=== PATIENT | female | born 1985 | race Hispanic/Latino ===

== ENCOUNTER 2023-03-27 07:19 | Emergency (ER) | payer SELFPAY ==
--- OUTSIDE RECORDS SUMMARY | 2023-03-27 07:22 | XMS REPORT | Continuity of Care Document ---
:1985 Author Organization [facility] t Address [address] [place] [address] Care Team Providers Name Role Phone Asked, No Pcp Primary Care Physician Unavailable Donny Andrade Attending Clinician DONNY ANDRADE Attending Clinician Unavailable MELANIE GHOTRA Attending Clinician Unavailable JACE CÁRDENAS Attending Clinician Unavailable ASHLEY NAPIER Attending Clinician Unavailable Fred Amaya Attending Clinician FRED AKBAR Attending Clinician Unavailable MELANIE GHOTRA Admitting Clinician Unavailable Payers Payer Name Policy Type Policy Number Effective Date Expiration Date S ource Problems Condition Condition Condition Status Onset Resolution Last Treating Co mments Source Name Details Category Date Date Treatment Clinician Date COUGH/ COUGH/ Diagnosis Active 2020-102021-11-29 Me moria FEVER FEVER 12-21 09:55:00 l Active 00:00: Saulo 10/20/2021 00 [facility] Menorrhagi Menorrhagi Disease Active M ethodi a with a with 06-29 regular regular 00:00: Hospita cycle cycle 00 l Chlamydia Chlamydia Disease Active Uni vers trachomati trachomati 5-19 it y of s s 00:00: [place] infection infection 00 Medi jacobo of lower of lower Branch genitourin genitourin nazia sites nazia sites Screening Screening Disease Active Uni vers for STD for STD 12 ity of (sexually (sexually 00:[place] transmit[place] transmitte 00 Me dical d disease) d disease) Br anch Surveillan Surveillan Disease Active Overview : Univers ce of ce of 3-16 ICD10 ity of previously previously 00:00: Diagnosis [place] prescribed prescribed 00 Term Me dical contracept contracept Pace Analyst Branch jesse method jesse method Utility Depo-Prove Depo-Prove Disease Active U nivers ra ra 3-16 ity of contracept [place]pt [place] j[place] status jesse status 00 Me dical Branch Anemia Anemia Disease Active Overview: Univer s 3-16 ICD10 ity of 00:00: Diagnosis [place] 00 Term Medical Pace Analyst Branch Utility Obesity Obesity Disease Active Overview: Univ ers -12 ICD10 ity of 00:00: Diagnosis [place] 00 Term Medical Pace Analyst Branch Utility History of Past Illness Condition Condition Condition Status Onset Resolution Last Treating Co mments Source Name Details Category Date Date Treatment Clinician Date 2018-nCoV 2019-nCoV Problem 2020-102021-10-24 2021-10-24 Memoria acute acute 24 10:20:53 10:20:53 l respirator respirator 18:00: He rmann y disease y disease 00 10/21/2021 [facility] Allergies, Adverse Reactions, Alerts Allergy Allergy Status Severity Reaction(s) Onset Inactive Treating Comm ents Source Name Type Date Date Clinician Hydrocod Propensi Active Hives Method i one-Acet ty to 4-17 st aminophe adverse 00:00: Hospita n reaction 00 l s to drug Penicill DA Active MO 2017-10 [facility] ins 0-30 Clear 00:00: [place] 00 [facility] hydrocod DA Active MO 2017-10 [facility] one 0-30 Clear 00:00: [place] 00 [facility] Penicill Propensi Active Hiv Univer s ins ty to 8-25 ity of adverse 00:00: [place] reaction 00 Medical s Branch PENICILL Drug Active Hives Univers INS Class 8-25 ity of 00:00: [place] 00 Medical Branch Hydrocod Propensi Active Hives Univer s one ty to 711 ity of adverse 00:00: [place] reaction 00 Medical s Branch HYDROCOD DRUG Active Hives Univers ONE INGREDI 7 ity of 00:00: [place] 00 Medical Branch amoxicil amoxicil Active Memori a chuy chuy l [place] acetamin acetamin Active Memori a ophen-hy ophen-hy l drocodon drocodon [place] n e e Family History Family Member Diagnosis Comments Start Date Stop Date Source Maternal grandmother Diabetes [facility] Maternal grandmother Heart disease [facility] Natural mother Bipolar disorder [facility] Natural mother Diabetes [facility] Natural mother Schizophrenia [facility] Social History Social Habit Start Date Stop Date Quantity Comments Source Gender identity [facility] Sexual orientation [facility] Social History 2021-10-21 2021-10-21 [facility] 04:47:29 04:47:29 Alcohol intake 2021-06-29 2021-06-29 [facility] 00:00:00 00:00:00 non-drinker Hospital (finding) History of Social 2021-06-29 2021-06-29 [facility] function 00:00:00 00:00:00 Hospital Tobacco use and 2021-02-12 2021-02-12 Smokeless [facility] exposure 00:00:00 00:00:00 tobacco non-user Hospital Tobacco Comment 2015-04-19 2015-04-19 social smoker Univer sity of 00:00:00 00:00:00 only [facility] Alcohol Comment 2013-05-08 2013-05-08 socially only Univer sity of 00:00:00 00:00:00 [facility] Sex Assigned At [birth year] [facility] 00:00:00 00:00:00 Hospital Smoking Status Start Date Stop Date Source Never smoker [facility] Medications Ordered Filled Start Stop Current Ordering Indication Dosage Frequency Signature Comments Components Source Medication Medication Date Date Medication? Clinician (SIG) Name Name MULTIVITAMI Yes Take by Uni vers N ORAL 1-31 mouth. ity of 16:51: [place] [facility] norgestimat Yes 1{tbl} Take 1 Un sowmya e-ethinyl 1-31 tablet by ity o f estradiol 00:00: mouth [place] (SPRINTEC) 00 daily. Medical 0.25-35 Branch mg-mcg per tablet norgestimat Yes [id number] 1{tbl} Take 1 Tab Univers e-ethinyl 4-18 by mouth ity of estradiol 00:00: daily. [place] (ORTHO 00 Medical TRI-CYCLEN, Branch 28,) 0.18/0.215/ 0.25 mg-35 mcg (28) tablet ferrous 2013- Yes [id number] 325mg Take 1 Tab Univers sulfate 1-09 by mouth 3 ity of (IRON, 00:00: (three) [place] FERROUS 00 times Medical SULFATE,) daily with Bran ch 325 mg (65 meals. mg iron) tablet Immunizations Ordered Filled Immunization Date Status Comments Sour e Immunization Name Name Td [facility]00 [facility] Vital Signs Vital Name Observation Time Observation Value Comments Source Body weight 2020-01-11 15:44:00 90.719 kg [facility] BMI 2020-01-11 15:44:00 35.43 kg/m2 [facility] Systolic blood 2020-01-11 15:43:00 141 [facility]Hg[facility] Diastolic blood 2020-01-11 15:43:00 95 mm[Hg] [facility] Heart rate 2020-01-11 15:43:00 78 /min [facility] Body temperature 2020-01-11 15:43:00 36.72 [facility] 2020-01-11 15:43:00 18 /min [facility] Oxygen saturation in 2020-01-11 15:43:00 99 /min [facility] Arterial blood by [facility] Pulse oximetry Branch Respitory Rate 2021-10-21 05:45:00 Florence[place] al [place] Systolic (mm Hg) 2021-10-21 05:45:00 Qamar lexi [facility] Diastolic (mm Hg) 2021-10-21 05:45:00 Mem orial [place] Temperature Oral (F) 2021-10-21 05:45:00 98.6 F [facility] [place] Heart Rate 2021-10-21 05:45:00 [facility] [place] Height 2021-10-21 04:40:00 157.48 cm [facility] [place] BMI Calculated 2021-10-21 04:40:00 Memori al [place] Weight 2021-10-21 04:40:00 [facility] [place] Systolic (mm Hg) 2021-10-21 04:40:00 Qamar rial [place] Diastolic (mm Hg) 2021-10-21 04:40:00 Mem orial [place] Heart Rate 2021-10-21 04:40:00 [facility] [place] Respitory Rate 2021-10-21 04:40:00 Memori al [place] Temperature Oral (F) 2021-10-21 04:40:00 98.6 F [facility] [place] Procedures Procedure Date / Time Performed Performing Clinician Sour e GALV ONLY - INFLUENZA 2020-01-11 15:53:00 Fred Akbar [facility] A B RSV PCR Medical Branch Plan of Care Planned Activity Planned Date Details Comments Source Future Scheduled 2023-01-29 [facility]ACCINE [facility] Test 11:33:24 (#1) [code = COVID-19 VACCINE (#1)] Future Scheduled 2023-01-29 [facility] Test 11:33:24 screening (procedure) [code = 163915732] Future Scheduled 2023-01-29 Screening for [facility] Test 11:33:24 malignant neoplasm of cervix (procedure) [code = 167395303] Future Scheduled 2023-01-29 INFLUENZA VACCINE [facility] Test 11:33:24 [code = INFLUENZA VACCINE] Encounters Start End Encounter Admission Attending Care Care Encounter Source Date/Time Date/Time Type Type Clinicians Facility Department ID 2021-10-21 2021-10-21 Emergency nullFlavo [facility] [id number] Memoria 04:34:00 06:46:00 [facility] 00 l ([facility]) Saulo 2021-10-20 2021-10-[address] [facility] [id number] 22:34:00 00:46:00 Sumit 00 2021-10-20 2021-10-[address] [facility] [id number] 22:34:00 00:46:00 Sumit 00 2021-10-20 2021-10-21 Emergency E DONNY ANDRADE [facility] [id number] 22:34:00 00:46:00 [facility] 2021-06-29 2021-06-30 Inpatient [facility], [facility] [id number] [place] 00:00:00 00:00:00 MELANIE 527 Method i 2021-06-15 2021-06-15 Emergency AVI, [place] [id number] [place] 00:00:00 00:00:00 JACE 214 Method i 2021-02-12 2021-02-12 Emergency KARTHIKEYAN, [place] [address] [id number] [place] 00:00:00 00:00:00 ASHLEY 487 Method i 2020-01-11 2020-01-11 Emergency Naomie, [place] [id number] Univers 10:44:53 12:13:00 [facility] [id number] i ty of Rad [id number] [facility] [id number] [address] 2020-01-11 2020-01-11 Emergency X NAOMIE, [facility] ERT [id number] Univers 10:44:53 10:44:53 FRED ity o f [facility] Results Test Description Test Time Test Comments Results Result Comments Source [facility] 2021-10-21 05:36:00 Test Item Value Reference Range Interpretation Comme nts Coronavirus (COVID-19) STEVEN (test code = Detected 1*ABN*(10/20/21 11 :36 PM) Coronavirus (COVID-19) STEVEN) [facility] - INFLUENZA A B RSV [id number] 16:57:00 Test Item Value Reference Range Interpretation Comments Influenza A virus by PCR (test code Negative Negative = 81498-7) Influenza B virus by PCR (test code Negative Negative = 60377-3) RSV by PCR (test code = 96787-7) Negative Negative Lab Interpretation (test code = Normal 42377-2) [facility]
--- NOTE | 2023-03-27 08:23 | RAD REPORT ---
EXAM DESCRIPTION: MONICA - HAND - 03/27/2023 7:59 am CLINICAL HISTORY: 5th digit injury;Pain COMPARISON: <Comparisons> TECHNIQUE: Left hand, 3 views. FINDINGS: No fracture is identified. There is no dislocation or periosteal reaction noted. Joint alignment is maintained. No foreign body. Soft tissue swelling about the fifth digit. IMPRESSION: Soft tissue swelling without acute osseous abnormality of the fifth digit
--- NOTE | 2023-03-27 08:38 | ER ---
Nurse's Notes [facility] Name: Latonya Sam Age: 37 yrs Sex: Female : 1985 Arrival Date: 03/27/2023 Time: 07:19 Bed 15 Private MD: Diagnosis: Other sprain of left little finger Presentation: 03/27 07:29 Chief complaint: Patient states: PT HAND WAS INJURED DUE TO DOG LEASH WRAPPED AROUND ld1 IT. Coronavirus screen: Client denies travel out of the [place] in the last 14 days. At this time, the client does not indicate any symptoms associated with coronavirus-19. Ebola Screen: No symptoms or risks identified at this time. Initial Sepsis Screen: Does the patient meet any 2 criteria? No. Patient's initial sepsis screen is negative. Risk Assessment: Do you want to hurt yourself or someone else? Patient reports no desire to harm self or others. 07:29 Method Of Arrival: Ambulatory ld1 07:29 Acuity: CLARK 4 ld1 08:51 Initial Sepsis Screen: Does the patient meet any 2 criteria? No. Patient's initial ld1 sepsis screen is negative. Does the patient have a suspected source of infection? No. Patient's initial sepsis screen is negative. Onset of symptoms was March 27, 2023. Triage Assessment: 07:32 General: Appears in no apparent distress. Pain: Complains of pain in palmar aspect of ld1 distal phalanx of left little finger, palmar aspect of middle phalanx of left little finger and palmar aspect of proximal phalanx of left little finger. 08:50 General: Behavior is calm, cooperative, appropriate for age. ld1 08:51 Injury Description: sprain. 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 - Family history:: not pertinent. - Social history:: Smoking status: Patient denies any tobacco usage or history of. Patient/guardian denies using alcohol. - Hospitalizations: : No recent hospitalization is reported. Screenin:17 [facility] ED Fall Risk Assessment (Adult) History of falling in the last 3 months, ld1 including since admission No falls in past 3 months (0 pts). Abuse screen: Denies threats or abuse. Denies injuries from another. Nutritional screening: No deficits noted. Tuberculosis screening: No symptoms or risk factors identified. Assessment: 08:17 Reassessment: No changes from previously documented assessment. Patient and/or family ld1 updated on plan of care and expected duration. Pain level reassessed. See triage assessment. Vital Signs: 07:29 BP 165 / 94; Pulse 76; Resp 18; Temp 98.2; Pulse Ox 99% on R/A; Weight 108.86 kg; ld1 Height 5 ft. 3 in. ; Pain 7/10; 07:32 BP 165 / 94; Pulse 76; Resp 16; Temp 98.2; Pulse Ox 99% on R/A; Weight 108.86 kg; ld1 Height 5 ft. 3 in. ; Pain 7/10; 08:17 BP 153 / 93; Pulse 79; Resp 18; Pulse Ox 100% on R/A; ld1 07:32 Body Mass Index 42.51 (108.86 kg, 160.02 cm) ld1 07:29 Pain Scale: Adult ld1 07:32 Pain Scale: Adult ld1 ED Course: 07:21 Patient arrived in ED. mr 07:24 Del Ley MD is Attending Physician. rn 07:29 Soila Chow, JOSE is Primary Nurse. ld1 07:31 Triage completed. ld1 08:01 XRAY Hand LEFT 3 View In Process Unspecified. EDMS 08:17 Patient has correct armband on for positive identification. Placed in gown. Bed in low ld1 position. Call light in reach. Side rails up X2. Pulse ox on. NIBP on. Door closed. Noise minimized. Warm blanket given. 08:17 No provider procedures requiring assistance completed. ld1 08:50 Arm band placed on right wrist. ld1 08:51 Patient did not have IV access during this emergency room visit. ld1 Administered Medications: No medications were administered Medication: 08:17 VIS not applicable for this client. ld1 Outcome: 08:37 Discharge ordered by . rn 08:50 Discharged to home ambulatory. ld1 08:50 Condition: stable 08:50 Discharge instructions given to patient, Instructed on discharge instructions, follow up and referral plans. Demonstrated understanding of instructions, follow-up care. 08:51 Patient left the ED. ld1 Signatures: Dispatcher [employer] Kaity Multani mr LeyDel MD MD rn ChowSoila RN RN ld1
--- NOTE | 2023-03-27 08:38 | EDPHYS ---
Physician Documentation [facility] Name: Latonya Sam Age: 37 yrs Sex: Female : 1985 Arrival Date: 03/27/2023 Time: 07:19 Bed 15 Private MD: ED Physician Del Ley HPI: 03/27 07:29 This 37 yrs old Female presents to ER via Unassigned with complaints of Finger rn Injury. 07:29 Mechanism of injury: Pull injury. Associated injuries: The patient sustained left 5th rn finger. Onset: The symptoms/episode began/occurred 5 day(s) ago. The patient has not experienced similar symptoms in the past. The patient has not recently seen a physician. Pt reports dog leash wrapped around her finger, dog pulled, heard a pop, swollen and bruised, happened 5 days ago. 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 - Family history:: not pertinent. - Social history:: Smoking status: Patient denies any tobacco usage or history of. Patient/guardian denies using alcohol. - Hospitalizations: : No recent hospitalization is reported. ROS: 07:29 Constitutional: Negative for fever, chills, and weight loss, MS/Extremity: + injury and rn pain to left 5th digit Skin: + bruising to left 5th finger Exam: 07:29 Constitutional: This is a well developed, well nourished patient who is awake, alert, rn and in no acute distress. MS/ Extremity: Pulses equal, no cyanosis. Neurovascular intact. + tenderness and swelling to proximal left 5th digit without open wound, + mild ecchymosis, some pain when making a fist, no scissoring noted. Vital Signs: 07:29 BP 165 / 94; Pulse 76; Resp 18; Temp 98.2; Pulse Ox 99% on R/A; Weight 108.86 kg; ld1 Height 5 ft. 3 in. ; Pain 7/10; 07:32 BP 165 / 94; Pulse 76; Resp 16; Temp 98.2; Pulse Ox 99% on R/A; Weight 108.86 kg; ld1 Height 5 ft. 3 in. ; Pain 7/10; 08:17 BP 153 / 93; Pulse 79; Resp 18; Pulse Ox 100% on R/A; ld1 07:32 Body Mass Index 42.51 (108.86 kg, 160.02 cm) ld1 07:29 Pain Scale: Adult ld1 07:32 Pain Scale: Adult ld1 MDM: 07:24 Patient medically screened. rn 08:35 Differential diagnosis: finger fracture. Data reviewed: vital signs, nurses notes, rn radiologic studies, plain films, and as a result, I will discharge patient. Independent interpretation of the following test(s) in the Emergency Department X-Ray: My interpretation is Xray left hand images neg for finger fracture per my interpretation. Counseling: I had a detailed discussion with the patient and/or guardian regarding: the historical points, exam findings, and any diagnostic results supporting the discharge/admit diagnosis, radiology results, the need for outpatient follow up, to return to the emergency department if symptoms worsen or persist or if there are any questions or concerns that arise at home. Special discussion: I discussed with the patient/guardian in detail that at this point there is no indication for admission to the hospital. It is understood, however, that if the symptoms persist or worsen the patient needs to return immediately for re-evaluation. 03/27 07:29 Order name: XRAY Hand LEFT 3 View; Complete Time: 08:35 rn 03/27 08:40 Order name: Splint - Finger; Complete Time: 08:50 rn Administered Medications: No medications were administered Disposition Summary: 03/27/23 08:37 Discharge Ordered Location: Home rn Problem: new rn Symptoms: have improved rn Condition: Stable rn Diagnosis - Other sprain of left little finger rn Followup: rn - With: Private Physician - When: As needed - Reason: Recheck today's complaints, Re-evaluation by your physician Discharge Instructions: - Discharge Summary Sheet rn - Finger Sprain, Adult rn Forms: - Medication Reconciliation Form rn - Thank You Letter rn - 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
[2023-03-27 08:59] VITALS: TEMP 98.2
[2023-03-27 09:02] VITALS: BP 153/93; O2SAT 100
== END 2023-03-27 08:51 | disposition home or self-care (01) ==
LOC: ER 07:19
DX: S63.697A Other sprain of left little finger, initial encounter (principal)
CPT/HCPCS: 99283

== ENCOUNTER 2023-04-09 13:53 | Emergency (ER) | payer SELFPAY ==
--- OUTSIDE RECORDS SUMMARY | 2023-04-09 13:57 | XMS REPORT | Continuity of Care Document ---
:1985 Author Organization [facility] t Address [address] [facility] [address] [place] [address] Care Team Providers Name Role Phone Asked, [...] FEVER FEVER 12-21 09:55:00 l Active 00:00: [place] 10/20/2021 00 MH [facility] Menorrhagi Menorrhagi Disease Active M ethodi a [...] prescribed 00 Term Me dical contracept contracept Client Renewal Specialist Branch jesse method jesse method Utility Depo-Prove Depo-Prove Disease Active U nivers ra ra 3-16 ity of [place] jesse status 00 Me dical Branch Anemia Anemia Disease Active Overview: Univer s 3-16 ICD10 ity of 00:00: Diagnosis [place] 00 Term Medical Client Renewal Specialist Branch Utility Obesity Obesity Disease Active Overview: Univ ers 12 ICD10 ity of 00:00: Diagnosis [place] 00 Term Medical Client Renewal Specialist Branch Utility History of Past Illness Condition Condition Condition Status Onset Resolution Last Treating Co mments Source Name Details Category Date Date Treatment Clinician Date 2018-nCoV 2019-nCoV Problem 2020-102021-10-24 2021-10-24 Memoria acute acute 24 10:20:53 10:20:53 l respirator respirator 18:00: He rmann y disease y disease 00 10/21/2021 [facility] Allergies, Adverse Reactions, Alerts Allergy Allergy Status Severity Reaction(s) Onset Inactive Treating Comm ents Source Name Type Date Date Clinician Hydrocod Propensi Active Hives Method i one-Acet ty to 4-17 st aminophe adverse 00:00: Hospita n reaction 00 l s to drug Penicill DA Active MO 2017-10 [facility] ins 0-30 Clear 00:00: Trejo 00 [facility] hydrocod DA Active MO 2017-10 [facility] one 0-30 Clear 00:00: [place] 00 [facility] Penicill Propensi Active Hives Univer s ins ty to 8-25 ity of adverse 00:00: [place] reaction 00 Medical s Branch PENICILL Drug Active Hives Univers INS Class 8-25 ity of 00:00: [place] 00 Medical Branch Hydrocod Propensi Active Hives Univer s one ty to 7-11 ity of adverse 00:00: [place] reaction 00 Medical s Branch HYDROCOD DRUG Active Hives Univers ONE INGREDI 7 ity of 00:00: [place] 00 Medical Branch amoxicil amoxicil Active Memori a chuy chuy l [place] acetamin acetamin Active Memori a ophen-hy ophen-hy l drocodon drocodon Carlin n e e Family History Family Member Diagnosis Comments Start Date Stop Date Source Maternal grandmother Diabetes [facility] Maternal grandmother Heart disease [facility] Natural mother Bipolar disorder [facility] Natural mother Diabetes [facility] Natural mother Schizophrenia [facility] Social History Social Habit Start Date Stop Date Quantity Comments Source Gender identity [facility] Sexual orientation [facility] Social History 2021-10-21 2021-10-21 [facility] 04:47:29 04:47:29 Alcohol intake 2021-06-29 2021-06-29 Lifetime [facility]ational 00:00:00 00:00:00 non-drinker Hospital (finding) History of Social 2021-06-29 2021-06-[address] [facility] [address] function 00:00:00 00:00:00 Hospital Tobacco use and 2021-02-12 2021-02-12 Smokeless Denominational exposure 00:00:00 00:00:00 tobacco non-user Hospital Tobacco Comment 2015-04-19 2015-04-19 social smoker Univer sity of 00:00:00 00:00:00 only [facility] Alcohol Comment 2013-05-08 2013-05-08 socially only Univer sity of 00:00:00 00:00:00 [facility] Sex Ass[birth year] At [birth year] [facility] 00:00:00 00:00:00 Hospital Smoking Status Start Date Stop Date Source Never smoker [facility] Medications Ordered Filled Start Stop Current Ordering Indication Dosage Frequency Signature Comments Components Source Medication Medication Date Date Medication? Clinician (SIG) Name Name MULTIVITAMI Yes Take by Uni vers N ORAL 1-31 mouth. ity of 16:51: [place] 21 [facility] norgestimat Yes 1{tbl} Take 1 Un sowmya e-ethinyl 1-31 tablet by ity o f estradiol 00:00: mouth [place] (SPRINTEC) 00 daily. Medical 0.25-35 Branch mg-mcg per tablet norgestimat Yes [id number] 1{tbl} Take 1 Tab Univers e-ethinyl 4-18 by mouth ity of estradiol 00:00: daily. [place] (ORTHO 00 Medical TRI-CYCLEN, Branch 28,) 0.18/0.215/ 0.25 mg-35 mcg (28) tablet ferrous 2013- Yes [id number] 325mg Take 1 Tab Univers sulfate 1-09 by mouth 3 ity of (IRON, 00:00: (three) [place] FERROUS 00 times Medical SULFATE,) daily with Bran ch 325 mg (65 meals. mg iron) tablet Immunizations Ordered Filled Immunization Date Status Comments Sour e Immunization Name Name Td 2007 Completed [facility] 00:00:00 [facility] Vital Signs Vital Name Observation Time Observation Value Comments Source Body weight 2020-01-11 15:44:00 90.719 kg [facility] BMI 2020-01-11 15:44:00 35.43 kg/m2 [facility] Systolic blood 2020-01-11 15:43:00 141 mm[facility]Hg[facility] Diastolic blood 2020-01-11 15:43:00 95 mm[Hg] [facility] Heart rate 2020-01-11 15:43:00 78 /min [facility] Body temperature 2020-01-11 15:43:00 36.72 Samia [facility] Respiratory rate 2020-01-11 15:43:00 18 /min [facility] Oxygen saturation in 2020-01-11 15:43:00 99 /min [facility] Arterial blood by [facility] Pulse oximetry Branch Heart Rate 2021-10-21 05:45:00 [facility] [place] Respitory Rate 2021-10-21 05:45:00 Danyell al [place] Systolic (mm Hg) 2021-10-21 05:45:00 Qamar rialibrado [place] Diastolic (mm Hg) 2021-10-21 05:45:00 Mem orial [place] Temperature Oral (F) 2021-10-21 05:45:00 98.6 F [facility] [place] Height 2021-10-21 04:40:00 157.48 cm [facility] [place] BMI Calculated 2021-10-21 04:40:00 Memori al [place] Weight 2021-10-21 04:40:00 [facility] [place] Systolic (mm Hg) 2021-10-21 04:40:00 Qamar rial [place] Diastolic (mm Hg) 2021-10-21 04:40:00 Mem orial [place] Heart Rate 2021-10-21 04:40:00 [facility] [place] Respitory Rate 2021-10-21 04:40:00 Memori al [place] Temperature Oral (F) 2021-10-21 04:40:00 98.6 F [facility] [place] Procedures Procedure Date / Time Performed Performing Clinician Sourida gorman GALV ONLY - INFLUENZA 2020-01-11 15:53:[address] [facility] A B RSV PCR Medical Branch Plan of Care Planned Activity Planned Date Details Comments Source Future Scheduled 2023-01-29 COVID-[address] [facility] Test 11:33:24 (#1) [code = COVID-19 VACCINE (#1)] Future Scheduled 2023-01-29 [facility] Test 11:33:24 screening (procedure) [code = 736041326] Future Scheduled 2023-01-29 [facility] for [facility] Test 11:33:24 malignant neoplasm of cervix (procedure) [code = 660742189] Future Scheduled 2023-01-29 INFLUENZA VACCINE [facility] Test 11:33:24 [code = INFLUENZA VACCINE] Future Scheduled 2023-01-29 COVID-[address] [facility] Test 11:33:24 (#1) [code = COVID-19 VACCINE (#1)] Future Scheduled 2023-01-29 [facility] Test 11:33:24 screening (procedure) [code = 248864356] Future Scheduled 2023-01-29 [facility] Test 11:33:24 malignant neoplasm of cervix (procedure) [code = 521070283] Future Scheduled 2023-01-29 INFLUENZA VACCINE [facility] Test 11:33:24 [code = INFLUENZA VACCINE] Encounters Start End Encounter Admission Attending Care Care Encounter Source Date/Time Date/Time Type Type Clinicians Facility Department ID 2021-10-21 2021-10-21 Emergency nullFlavo [facility] [id number] Memoria 04:34:00 06:46[facility] [place] 2021-10-21 2021-10-21 Emergency nullFlavo [facility] [id number] Mem[facility] 04:34:00 06:46:00 [facility] [place] 2021-10-20 2021-10-21 Outpatient Donny Andrade [facility] [id number] 22:34:00 00:46:00 Sumit 2021-10-20 2021-10-21 Outpatient Donny Andrade MHSE [facility] [id number] 22:34:00 00:46:00 Sumit 2021-10-20 2021-10-21 Emergency E DONNY ANDRADE [facility] MED [id number] 22:34:00 00:46:00 [facility] 2021-06-29 2021-06-30 Inpatient PARADISE, [facility] [id number] 34 [place] 00:00:00 00:00:00 MELANIE 527 Method i 2021-06-15 2021-06-15 Emergency AVI, [facility] [id number] [place] 00:00:00 00:00:00 JACE 214 Method i 2021-02-12 2021-02-12 Emergency KARTHIKEYAN, [facility] [id number] [place] 00:00:00 00:00:00 ASHLEY 487 Method i 2020-01-11 2020-01-11 Emergency Naomie, TRAUMA [id number] Univers 10:44:53 12:13:00 [facility] [id number] [id number] [address] 2020-01-11 2020-01-11 Emergency X NAOMIE NHLAINE ERT [id number] Univers 10:44:53 10:44:53 FRED malave o f [facility] Results Test Description Test Time Test Comments Results Result Comments Source IMMUNOLOGY 2021-10-21 05:36:00 Test Item Value Reference Range Interpretation Comme nts Coronavirus (COVID-19) STEVEN (test code = Detected 1*ABN*(10/20/21 11 :36 PM) Coronavirus (COVID-19) STEVEN) [id number] 05:36:00 Test Item Value Reference Range Interpretation Comments Coronavirus (COVID-19) Detected STEVEN (test code = 1*ABN*(10/20/21 11:36 Coronavirus (COVID-19) PM) STEVEN) [facility] - INFLUENZA A B RSV [id number] 16:57:00 Test Item Value Reference Range Interpretation Comments Influenza A virus by PCR (test code Negative Negative = 96225-2) Influenza B virus by PCR (test code Negative Negative = 54770-3) RSV by PCR (test code = 81247-4) Negative Negative Lab Interpretation (test code = Normal 68295-8) [facility]
--- NOTE | 2023-04-09 16:28 | RAD REPORT ---
EXAM DESCRIPTION: Sonia Single View04/09/2023 3:49 pm CLINICAL HISTORY: Congestion COMPARISON: none FINDINGS: The lungs appear clear of acute infiltrate. The heart is normal size IMPRESSION: No acute abnormalities displayed
--- NOTE | 2023-04-09 16:46 | ER ---
Nurse's Notes [facility] [place] Name: Latonya Sam Age: 37 yrs Sex: Female : 1985 Arrival Date: 04/09/2023 Time: 13:53 Bed 24 Private MD: Diagnosis: Other viral infections of unspecified site;Acute upper respiratory infection, unspecified Presentation: 04/09 14:11 Chief complaint: Patient states: Cough, congestion, N/V since Sunday. Coronavirus jl7 screen: congestion, cough unrelated to allergies, Client presents with at least one sign or symptom that may indicate coronavirus-19. Ebola Screen: No symptoms or risks identified at this time. Initial Sepsis Screen: Does the patient meet any 2 criteria? No. Patient's initial sepsis screen is negative. Does the patient have a suspected source of infection? No. Patient's initial sepsis screen is negative. Risk Assessment: Do you want to hurt yourself or someone else? Patient reports no desire to harm self or others. Onset of symptoms was April 07, 2023. 14:11 Method Of Arrival: Ambulatory [facility] 14:11 Acuity: CLARK 3 jl7 Triage Assessment: 14:12 General: Appears in no apparent distress. uncomfortable, Behavior is calm, cooperative, jl7 appropriate for age. Pain: Denies pain. Neuro: Level of Consciousness is awake, alert, obeys commands, Oriented to person, place, time, situation. Cardiovascular: Patient's skin is warm and dry. Respiratory: Airway is patent Respiratory effort is even, unlabored, Respiratory pattern is regular, symmetrical. GI: Reports nausea, vomiting. Derm: Skin is pink, warm \T\ dry. 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 - Social history:: Smoking status: Patient denies any tobacco usage or history of. Screenin:32 [facility] ED Fall Risk Assessment (Adult) History of falling in the last 3 months, mb9 including since admission No falls in past 3 months (0 pts) Confusion or Disorientation No (0 pts) Intoxicated or Sedated No (0 pts) Impaired Gait No (0 pts) Mobility Assist Device Used No (0 pt) Altered Elimination No (0 pt) Score/Fall Risk Level 0 - 2 = Low Risk Oriented to surroundings, Maintained a safe environment, Educated pt \T\ family on fall prevention, incl call for assistance when getting out of bed. Abuse screen: Denies threats or abuse. Nutritional screening: No deficits noted. Tuberculosis screening: No symptoms or risk factors identified. Assessment: 14:32 Reassessment: see triage assessment. mb9 15:35 Reassessment: No changes from previously documented assessment. Patient and/or family mb9 updated on plan of care and expected duration. Pain level reassessed. Patient is alert, oriented x 3, equal unlabored respirations, skin warm/dry/pink. 17:02 Reassessment: Patient and/or family updated on plan of care and expected duration. Pain mb9 level reassessed. Patient is alert, oriented x 3, equal unlabored respirations, skin warm/dry/pink. Patient states feeling better. Patient states symptoms have improved. Vital Signs: 14:11 BP 171 / 102; Pulse 79; Resp 17; Temp 97.9; Pulse Ox 98% ; Weight 102.06 kg; Height 5 jl7 ft. 2 in. ; Pain 0/10; 15:06 BP 165 / 78; Pulse 74; Resp 20; Pulse Ox 99% on R/A; mb9 17:02 BP 154 / 78; Pulse 70; Resp 17; Pulse Ox 100% on R/A; mb9 14:11 Body Mass Index 41.15 (102.06 kg, 157.48 cm) jl7 14:11 Pain Scale: Adult jl7 ED Course: 13:55 Patient arrived in ED. rg4 14:06 Shashi Zafar MD is Attending Physician. kdr 14:12 Triage completed. jl7 14:12 Arm band placed on right wrist. jl7 14:31 Kaity Mora RN is Primary Nurse. mb9 14:32 Placed in gown. Bed in low position. Call light in reach. Client placed on continuous mb9 cardiac and pulse oximetry monitoring. NIBP monitoring applied. 14:32 No provider procedures requiring assistance completed. mb9 14:39 Flu Sent. mb9 14:39 Strep Sent. mb9 14:39 COVID-19 SARS RT PCR Sent. mb9 15:51 CXR XRAY In Process Unspecified. EDMS 17:02 Patient did not have IV access during this emergency room visit. mb9 Administered Medications: No medications were administered Medication: 14:32 VIS not applicable for this client. mb9 Outcome: 16:45 Discharge ordered by . kdr 17:02 Discharged to home ambulatory. mb9 17:02 Condition: stable 17:02 Discharge instructions given to patient, Instructed on discharge instructions, follow up and referral plans. Demonstrated understanding of instructions, follow-up care. 17:02 Patient left the ED. mb9 Signatures: Dispatcher [employer] EDPA Shashi Zafar MD MD kdr Garcia, Rubi rg4 Ayana Russell RN RN jl7 Kaity Mora RN RN mb9
--- NOTE | 2023-04-09 16:46 | EDPHYS ---
Physician Documentation [facility] Name: Latonya Sam Age: 37 yrs Sex: Female : 1985 Arrival Date: 04/09/2023 Time: 13:53 Bed 24 Private MD: ED Physician Shashi Zafar HPI: 04/09 16:41 This 37 yrs old Female presents to ER via Ambulatory with complaints of kdr Vomiting, Cough. 16:41 Patient presents to the ED with cough congestion and some nausea and occasional kdr vomiting since Sunday. She was here previously for similar symptoms but nothing had been found at that time. She is back because her symptoms have progressed and persisted. Onset: The symptoms/episode began/occurred gradually, 4 day(s) ago. Severity of symptoms: At their worst the symptoms were mild in the emergency department the symptoms are unchanged. The patient has not experienced similar symptoms in the past. The patient has been recently seen at the [facility] Emergency Department, last week. 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 - Social history:: Smoking status: Patient denies any tobacco usage or history of. ROS: 16:41 Constitutional: Negative for fever, chills, and weight loss, Eyes: Negative for injury, kdr pain, redness, and discharge, Neck: Negative for injury, pain, and swelling, Cardiovascular: Negative for chest pain, palpitations, and edema, Abdomen/GI: Negative for abdominal pain, nausea, vomiting, diarrhea, and constipation, Back: Negative for injury and pain, : Negative for injury, bleeding, discharge, and swelling, MS/Extremity: Negative for injury and deformity, Skin: Negative for injury, rash, and discoloration, Neuro: Negative for headache, weakness, numbness, tingling, and seizure activity. Psych: Negative for depression, anxiety, suicide ideation, homicidal ideation, and hallucinations, Allergy/Immunology: Negative for hives, rash, and allergies, Endocrine: Negative for neck swelling, polydipsia, polyuria, polyphagia, and marked weight changes, Hematologic/Lymphatic: Negative for swollen nodes, abnormal bleeding, and unusual bruising. 16:41 ENT: Positive for sore throat, Negative for ear pain, Gum pain pulling at ears, Teeth pain tinnitus, nasal discharge, rhinorrhea, sinus congestion. 16:41 Respiratory: Positive for cough, with no reported sputum, Negative for dyspnea on exertion, hemoptysis, orthopnea, pleurisy, sputum production, wheezing, acute changes. Exam: 16:41 Constitutional: This is a well developed, well nourished patient who is awake, alert, kdr and in no acute distress. Head/Face: Normocephalic, atraumatic. Eyes: Pupils equal round and reactive to light, extra-ocular motions intact. Lids and lashes normal. Conjunctiva and sclera are non-icteric and not injected. Cornea within normal limits. Periorbital areas with no swelling, redness, or edema. Neck: Trachea midline, no thyromegaly or masses palpated, and no cervical lymphadenopathy. Supple, full range of motion without nuchal rigidity, or vertebral point tenderness. No Meningismus. Chest/axilla: Normal chest wall appearance and motion. Nontender with no deformity. No lesions are appreciated. Cardiovascular: Regular rate and rhythm with a normal S1 and S2. No gallops, murmurs, or rubs. Normal PMI, no JVD. No pulse deficits. Respiratory: Lungs have equal breath sounds bilaterally, clear to auscultation and percussion. No rales, rhonchi or wheezes noted. No increased work of breathing, no retractions or nasal flaring. Abdomen/GI: Soft, non-tender, with normal bowel sounds. No distension or tympany. No guarding or rebound. No evidence of tenderness throughout. Back: No spinal tenderness. No costovertebral tenderness. Full range of motion. Skin: Warm, dry with normal turgor. Normal color with no rashes, no lesions, and no evidence of cellulitis. MS/ Extremity: Pulses equal, no cyanosis. Neurovascular intact. Full, normal range of motion. Neuro: Awake and alert, GCS 15, oriented to person, place, time, and situation. Cranial nerves II-XII grossly intact. Motor strength 5/5 in all extremities. Sensory grossly intact. Cerebellar exam normal. Normal gait. Psych: Awake, alert, with orientation to person, place and time. Behavior, mood, and affect are within normal limits. Vital Signs: 14:11 BP 171 / 102; Pulse 79; Resp 17; Temp 97.9; Pulse Ox 98% ; Weight 102.06 kg; Height 5 jl7 ft. 2 in. ; Pain 0/10; 15:06 BP 165 / 78; Pulse 74; Resp 20; Pulse Ox 99% on R/A; mb9 17:02 BP 154 / 78; Pulse 70; Resp 17; Pulse Ox 100% on R/A; mb9 14:11 Body Mass Index 41.15 (102.06 kg, 157.48 cm) jl7 14:11 Pain Scale: Adult jl7 MDM: 16:41 Data reviewed: vital signs, nurses notes, lab test result(s), radiologic studies. kdr 16:45 Patient medically screened. [facility] 04/09 14:15 Order name: COVID-19 SARS RT PCR; Complete Time: 15:50 [facility] 04/09 14:15 Order name: Strep [facility] 04/09 14:15 Order name: Flu; Complete Time: 15:50 [facility] 04/09 15:20 Order name: Throat Culture [facility] 04/09 14:15 Order name: CXR XRAY; Complete Time: 16:31 kdr Administered Medications: No medications were administered Disposition Summary: 04/09/23 16:45 Discharge Ordered Location: Home kdr Problem: an ongoing problem kdr Symptoms: have improved kdr Condition: Stable kdr Diagnosis - Other viral infections of unspecified site kdr - Acute upper respiratory infection, unspecified kdr Followup: kdr - With: Private Physician - When: 2 - 3 days - Reason: If symptoms return, Further diagnostic work-up, Recheck today's complaints, Continuance of care, Re-evaluation by your physician Discharge Instructions: - Upper Respiratory Infection, Adult kdr - Viral Respiratory Infection, [id number] kdr - Discharge Summary Sheet mb9 Forms: - Medication Reconciliation Form kdr - Thank You Letter kdr - Work release form mb9 Signatures: Dispatcher [employer] Shashi Salazar MD MD kdr Ayana Russell RN RN jl7
[2023-04-09 18:39] VITALS: TEMP 97.9
[2023-04-09 18:42] VITALS: BP 154/78; O2SAT 100
== END 2023-04-09 17:02 | disposition home or self-care (01) ==
LOC: ER 13:53
DX: B34.8 Other viral infections of unspecified site (principal); J06.9 Acute upper respiratory infection, unspecified; Z20.822 Contact with and (suspected) exposure to COVID-19; Z88.5 Allergy status to narcotic agent
CPT/HCPCS: 71045; 87070; 87081; 87635; 87804; 99283

== ENCOUNTER 2023-06-28 02:05 | Emergency (ER) | payer BC, SELFPAY ==
--- OUTSIDE RECORDS SUMMARY | 2023-06-28 02:08 | XMS REPORT | Continuity of Care Document ---
:1985 Author Organization [facility] t Address [address] [place] [address] Care Team Providers Name Role Phone Asked, No Pcp Primary Care Physician Unavailable DONNY ANDRADE Attending Clinician Unavailable Donny Andrade Attending Clinician MELANIE GHOTRA Attending Clinician Unavailable JACE CÁRDENAS [...] 09:55:00 l Active 00:00: Saulo 10/20/2021 00 [facility] Menorrhagi Menorrhagi Disease Active M ethodi [...] prescribed 00 Term Me dical contracept contracept Sap Basis Consultant Branch jesse method jesse method Utility Depo-Prove Depo-Prove Disease Active U nivers ra ra 3-16 ity of [place] jesse status 00 Me dical Branch Anemia Anemia Disease Active Overview: Univer s 3-16 ICD10 ity of 00:00: Diagnosis [place] 00 Term Medical Sap Basis Consultant Branch Utility Obesity Obesity Disease Active Overview: Univ ers -12 ICD10 ity of 00:00: Diagnosis [place] 00 Term Medical Sap Basis Consultant Branch Utility History of Past Illness Condition Condition Condition Status Onset Resolution Last Treating Co mments Source Name Details Category Date Date Treatment Clinician Date 2018-nCoV 2019-nCoV Problem 2020-102021-10-24 2021-10-24 Memoria acute acute 24 10:20:53 10:20:53 l respirator respirator 18:00: He rmann y disease y disease 00 10/21/2021 [facility] Allergies, Adverse Reactions, Alerts Allergy Allergy Status Severity Reaction(s) Onset Inactive Treating Comm ents Source Name Type Date Date Clinician Hydrocod Propensi Active Hives Method i one-Acet ty to 4-17 st aminophe adverse 00:00: Hospita n reaction 00 l s to drug Penicill DA Active MO 2017-10 [facility] ins 0-30 Clear 00:00: Trejo 00 [facility] hydrocod DA Active MO 2017-10 [facility] one 0-30 Clear 00:00: Trejo 00 [facility] Penicill Propensi Active Hiv Univer s ins [...] amoxicil Active Memori a chuy chuy l [place] acetamin acetamin Active Memori a ophen-hy ophen-hy l drocodon drocodon [place] n e e Family History Family Member Diagnosis Comments Start Date Stop Date Source Maternal grandmother Diabetes [facility] Maternal grandmother Heart disease [facility] Natural mother Bipolar disorder [facility] Natural mother Diabetes [facility] Natural mother Schizophrenia [facility] Social History Social Habit Start Date Stop Date Quantity Comments Source Gender identity [facility] Sexual orientation Method [facility] Social History 2021-10-21 2021-10-21 [facility] 04:47:29 04:47:29 Alcohol intake 2021-06-29 2021-06-29 [facility] 00:00:00 00:00:00 non-drinker Hospital (finding) History of Social 2021-06-29 2021-06-29 [facility] function 00:00:00 00:00:00 Hospital Tobacco use and 2021-02-12 2021-02-12 Smokeless [facility] exposure 00:00:00 00:00:00 tobacco non-user Hospital Tobacco Comment 2015-04-19 2015-04-19 social smoker Univer sity of 00:00:00 00:00:00 only [facility] Alcohol Comment 2013-05-08 2013-05-08 socially only Univer sity of 00:00:00 00:00:00 [facility] Sex Assigned At [birth year] [facility] 00:00:00 [facility]:00 Hospital Smoking Status Start Date Stop Date Source Never smoker [facility] Medications Ordered Filled Start Stop Current Ordering Indication Dosage Frequency Signature Comments Components Source Medication Medication Date Date Medication? Clinician (SIG) Name Name MULTIVITAMI Yes Take by Uni vers N ORAL 1-31 mouth. ity of 16:51: [place] 21 [facility] norgestimat Yes 1{tbl} Take 1 Un sowmya e-ethinyl 1-31 tablet by ity o f estradiol 00:00: mouth [place] (SPRINTEC) 00 daily. Medical 0.25-35 Branch mg-mcg per tablet norgestimat Yes [id number] 1{tbl} Take 1 Tab Univers e-ethinyl 4-18 by mouth ity of estradiol 00:00: daily. [place] (ORTHO 00 Medical TRI-CYCLEN, Branch 28,) 0.18/0.215/ 0.25 mg-35 mcg (28) tablet ferrous 2013- Yes [id number] 325mg Take 1 Tab Univers sulfate 1-09 by mouth 3 ity of (IRON, 00:00: (three) [place] FERROUS 00 times Medical SULFATE,) daily with Bran ch 325 mg (65 meals. mg iron) tablet Immunizations Ordered Filled Immunization Date Status Comments Sour e Immunization Name Name Td 2007 Completed [facility] 00:00:00 [facility] Vital Signs Vital Name Observation Time Observation Value Comments Source Body weight 2020-01-11 15:44:00 90.719 kg [facility] BMI 2020-01-11 15:44:00 35.43 kg/m2 [facility] Systolic blood 2020-01-11 15:43:00 141 mm[facility]Hg[facility] Diastolic blood 2020-01-11 15:43:00 95 mm[Hg] [facility] Heart rate 2020-01-11 15:43:00 78 /min [facility] Body temperature 2020-01-11 15:43:00 36.72 [facility] Respiratory rate 2020-01-11 15:43:00 18 /min [facility] Oxygen saturation in 2020-01-11 15:43:00 99 /min [facility] Arterial blood by [facility] Pulse oximetry Branch Respitory Rate 2021-10-21 05:45:00 Florenceori al [facility] Systolic (mm Hg) 2021-10-21 05:45:00 Qamar lexi [facility] Diastolic (mm Hg) 2021-10-21 05:45:00 Mem orial [place] Temperature Oral (F) 2021-10-21 05:45:00 98.6 F [facility] Saulo Heart Rate 2021-10-21 05:45:00 [facility] [place] Height 2021-10-21 04:40:00 157.48 cm [facility] [place] BMI Calculated 2021-10-21 04:40:00 Memori al [place] Weight 2021-10-21 04:40:00 [facility] [place] Systolic (mm Hg) 2021-10-21 04:40:00 Qaamr rial [place] Diastolic (mm Hg) 2021-10-21 04:40:00 Mem orial [place] Heart Rate 2021-10-21 04:40:00 [facility] [place] Respitory Rate 2021-10-21 04:40:00 Memori al [place] Temperature Oral (F) 2021-10-21 04:40:00 98.6 F [facility] [place] Procedures Procedure Date / Time Performed Performing Clinician Sourc e GALV ONLY - INFLUENZA 2020-01-11 15:53:00 Fred Akbar [facility] A B RSV PCR Medical Branch Plan of Care Planned Activity Planned Date Details Comments Source Future Scheduled 2023-06-25 COVID-[address] [facility] Test 17:02:18 (#1) [code = COVID-19 VACCINE (#1)] Future Scheduled 2023-06-25 [facility] Test 17:02:18 screening (procedure) [code = 151932408] Future Scheduled 2023-06-25 Screening for [facility] Test 17:02:18 malignant neoplasm of cervix (procedure) [code = 795527171] Future Scheduled 2023-06-25 [facility]ENZA VACCINE [facility] Test 17:02:18 (#1) [code = INFLUENZA VACCINE (#1)] Future Scheduled 2023-01-29 COVID-[address] [facility] Test 11:33:24 (#1) [code = COVID-19 VACCINE (#1)] Future Scheduled 2023-01-29 [facility] Test 11:33:24 screening (procedure) [code = 686862393] Future Scheduled 2023-01-29 Screening for [facility] Test 11:33:24 malignant neoplasm of cervix (procedure) [code = 116351034] Future Scheduled 2023-01-29 [facility]FL[facility]ENZA VACCINE [facility] Test 11:33:24 [code = INFLUENZA VACCINE] Future Scheduled 2023-01-29 COVID-[address] [facility] Test 11:33:24 (#1) [code = COVID-19 VACCINE (#1)] Future Scheduled 2023-01-29 [facility] Test 11:33:24 screening (procedure) [code = 796966177] Future Scheduled 2023-01-29 Screening for [facility] Test 11:33:24 malignant neoplasm of cervix (procedure) [code = 208808529] Future Scheduled 2023-01-29 INFLUENZA VACCINE [facility] Test 11:33:24 [code = INFLUENZA VACCINE] Encounters Start End Encounter Admission Attending Care Care Encounter Source Date/Time Date/Time Type Type Clinicians Facility Department ID 2021-10-21 2021-10-21 Emergency [facility]Flavo [id number] Memoria 04:34:00 06:46:00 [facility] 00 l ([facility]) [place] 2021-10-21 2021-10-21 Emergency [facility]Flavo [facility] [id number] Mem[facility] 04:34:00 06:46:00 [facility] 00 l ([facility]) [place] 2021-10-20 2021-10-21 Emergency E DONNY ANDRADE [facility] [id number] 22:34:00 00:46:00 [facility] 2021-10-20 2021-10-21 Outpatient Donny Andrade [facility]SE [id number] 22:34:00 00:46:00 [place] 2021-10-20 2021-10-21 Outpatient Donny Andrade SE [id number] 22:34:00 00:46:00 [place] 2021-06-29 2021-06-30 Inpatient [place], [facility] [id number] [place] 00:00:00 00:00:00 MELANIE 527 Method i 2021-06-15 2021-06-15 Emergency AVI, [facility] [id number] [place] 00:00:00 00:00:00 JACE 214 Method i 2021-02-12 2021-02-12 Emergency KARTHIKEYAN, [facility] [id number] [place] 00:00:00 00:00:00 ASHLEY 487 Method i 2020-01-11 2020-01-11 Emergency Naomie, [place] [id number] Univers 10:44:53 12:13:00 [facility] [id number] i ty of Rad [id number] Alina kwon [id number] [address] 2020-01-11 2020-01-11 Emergency X NAOMIE [facility] ERT [id number] Univers 10:44:53 10:44:53 FRED ity o f [facility] Results Test Description Test Time Test Comments Results Result Comments Source IMMUNOLOGY 2021-10-21 05:36:00 Test Item Value Reference Range Interpretation Comme nts Coronavirus (COVID-19) STEVEN (test code = Detected 1*ABN*(10/20/21 11 :36 PM) Coronavirus (COVID-19) STEVEN) [id number] 05:36:00 Test Item Value Reference Range Interpretation Comments Coronavirus (COVID-19) Detected STEVEN (test code = 1*ABN*(10/20/21 11:36 Coronavirus (COVID-19) PM) STEVEN) [facility] [id number] 05:36:00 Test Item Value Reference Range Interpretation Comments Coronavirus (COVID-19) Detected STEVEN (test code = 1*ABN*(10/20/21 11:36 Coronavirus (COVID-19) PM) STEVEN) [facility] - INFLUENZA A B RSV [id number] 16:57:00 Test Item Value Reference Range Interpretation Comments Influenza A virus by PCR (test code Negative Negative = 65460-4) Influenza B virus by PCR (test code Negative Negative = 06880-0) RSV by PCR (test code = 95016-2) Negative Negative Lab Interpretation (test code = Normal 23381-7) [facility]
[2023-06-28] MEDS ORDERED: NA CHLORIDE 0.9% 1,000 ML ONE (02:50)
[2023-06-28] MEDS ORDERED: ONDANSETRON 4 MG/2 ML VIAL ONE (02:53)
[2023-06-28 02:58] LABS: Specific Gravity 1.032 (1.005-1.030)
[2023-06-28 03:01] LABS: Specific Gravity > 1.030 (1.005-1.030); Urine Bacteria None Seen /HPF (<20); Urine Bilirubin NEGATIVE (Negative); Urine Blood 3+ (OVER) (Negative); Urine Clarity Clear (Clear); Urine Color Colorless (Yellow); Urine Glucose 4+ (Over) (Negative); Urine Protein NEGATIVE (Negative); Urine RBC >50 /HPF (None Seen); Urine Urobilinogen Normal (Normal); Urine pH 6.5 (5.0-7.0)
[2023-06-28 03:06] LABS: Potassium 3.4 mEq/L (3.5-5.1)
[2023-06-28 03:09] LABS: Absolute Lymphocytes (CBC) 2.2 K/uL (0.7-4.9); Hematocrit 33.2 % (36.0-45.0); Lymphocytes % 26.6 % (15.3-44.8); MCV 64.6 fL (80-100); MPV 8.2 fL (7.6-11.3); Platelets 315 thou/uL (152-406); RBC Red Blood Cell Count 5.15 M/uL (3.86-4.86)
[2023-06-28 03:54] LABS: SARS-CoV-2 Antigen Rapid Res Negative (Negative)
[2023-06-28] MEDS ORDERED: INSULIN -REGULAR HUMAN 50 UNIT/0.5 ML ML ONE (04:00)
[2023-06-28 04:41] LABS: Blood Morphology Comment NOTED (NOT SEEN); Hypochromasia 1+; Platelet Estimate ADEQ; White Blood Cell Scan OK (OK)
--- NOTE | 2023-06-28 04:57 | ER ---
Nurse's Notes [facility] Name: Latonya Sam Age: 37 yrs Sex: Female : 1985 Arrival Date: 06/28/2023 Time: 02:05 Bed 19 Private MD: Diagnosis: Other specified diabetes mellitus with hyperglycemia;New onset diabetes mellitus type 2, nausea and vomiting, vaginal bleeding. Dysfunctional uterine bleeding, uterine fibroid. ;Hyperglycemia associated with type 2 diabetes Presentation: 06/28 02:09 Chief complaint: Patient states: i have heavy periods and I've saturated 3 pads in 1 lg3 hour. also complaints of cough, congestion, weakness. Coronavirus screen: Client denies travel out of the [place] in the last 14 days. Client presents with at least one sign or symptom that may indicate coronavirus-19. Standard/surgical mask placed on the client. Ebola Screen: No symptoms or risks identified at this time. Initial Sepsis Screen: Does the patient meet any 2 criteria? No. Patient's initial sepsis screen is negative. Does the patient have a suspected source of infection? No. Patient's initial sepsis screen is negative. Risk Assessment: Do you want to hurt yourself or someone else? Patient reports no desire to harm self or others. Onset of symptoms was June 27, 2023. 02:09 Method Of Arrival: Ambulatory lg3 02:09 Acuity: CLARK 3 lg3 Triage Assessment: 02:12 General: Appears in no apparent distress. uncomfortable, Behavior is calm, cooperative. lg3 Pain: Denies pain. EENT: No deficits noted. No signs and/or symptoms were reported regarding the EENT system. Reports nasal congestion nasal discharge. Neuro: No deficits noted. Zapien Agitation-Sedation Scale (RASS): 0 - Alert and Calm Level of Consciousness is awake, alert, obeys commands, Oriented to person, place, time, situation. Cardiovascular: No deficits noted. Denies chest pain, shortness of breath, Capillary refill < 3 seconds Clubbing of nail beds is absent JVD is absent Patient's skin is warm and dry. Respiratory: Reports cough that is Airway is patent Respiratory effort is even, unlabored, Respiratory pattern is regular, symmetrical. GI: No deficits noted. Abdomen is round non-distended, obese. : Reports vaginal bleeding that is heavy flow. Derm: No deficits noted. No signs and/or symptoms reported regarding the dermatologic system. Skin is intact, is healthy with good turgor, Skin is dry, Skin is normal, Skin temperature is warm. Musculoskeletal: No deficits noted. Circulation, motion, and sensation intact. Range of motion: intact in all extremities, Reports generalized weakness. UX LEAD: 02:12 LMP 06/28/2023 lg3 Historical: - Allergies: 02:12 Hydrocodone-Acetaminophen; lg3 - Home Meds: 02:12 None [Active]; lg3 - PMHx: 02:12 Diabetes mellitus; Schizophrenia; Anxiety; Depressive disorder; lg3 - PSHx: 02:12 Tonsillectomy; Adenoid excision; lg3 - Immunization history:: Adult Immunizations up to date, Client reports having NOT received the Covid vaccine. Flu vaccine is not up to date. - Social history:: Smoking status: Patient denies any tobacco usage or history of. Patient/guardian denies using alcohol, street drugs. Screenin:44 [facility] ED Fall Risk Assessment (Adult) Score/Fall Risk Level 0 - 2 = Low Risk. Abuse iw screen: Denies threats or abuse. Denies injuries from another. Nutritional screening: No deficits noted. Tuberculosis screening: No symptoms or risk factors identified. Assessment: 03:44 Reassessment: Patient appears in no apparent distress at this time. Patient and/or iw family updated on plan of care and expected duration. Pain level reassessed. Patient is alert, oriented x 3, equal unlabored respirations, skin warm/dry/pink. Vital Signs: 02:09 BP 185 / 106; Pulse 85; Resp 17 S; Temp 98.4(TE); Pulse Ox 99% on R/A; Weight 92.99 kg lg3 (R); Height 5 ft. 2 in. (R); 03:44 BP 149 / 87; Pulse 72; Resp 16; Pulse Ox 100% on R/A; iw 02:09 Body Mass Index 37.49 (92.99 kg, 157.48 cm) 3 ED Course: 02:05 Patient arrived in ED. ag3 02:06 Erika Erwin FNP-C is [facility]. kb 02:06 Bryan Díaz MD is Attending Physician. kb 02:12 Triage completed. lg3 02:12 Arm band placed on right wrist. lg3 02:21 Inserted saline lock: 20 gauge in left antecubital area, using aseptic technique. Blood lg3 collected. 02:32 Ekta Stout, RN is Primary Nurse. iw 03:16 US Pelvis Complete In Process Unspecified. EDMS 03:52 Patient has correct armband on for positive identification. Provided Education on: iw insulin. 03:52 No provider procedures requiring assistance completed. iw 04:55 Willem Beach MD is Referral Physician. sp4 05:08 IV discontinued, intact, bleeding controlled, No redness/swelling at site. Pressure iw dressing applied. Administered Medications: 02:41 Drug: NS 0.9% IV 1000 ml Route: IV; Rate: 1000 ml; Site: left antecubital; iw 03:46 Follow up: IV Status: Completed infusion iw 02:43 Drug: Ondansetron IVP 4 mg Route: IVP; Site: left antecubital; iw 03:45 Follow up: Response: No adverse reaction iw 03:53 Drug: Insulin Regular Human IVP 5 units {Co-Signature: iw (Ekta Stout RN).} Route: kl IVP; Site: right antecubital; 05:07 Follow up: Response: No adverse reaction; Blood sugar is lowered iw Medication: 04:33 VIS not applicable for this client. iw Point of Care Testing: Blood Glucose: 04:34 Blood Glucose: 227 mg/dL; iw Ranges: Outcome: 04:56 Discharge ordered by MD. sp4 05:07 Patient left the ED. iw 05:07 Discharged to home ambulatory. iw 05:07 Condition: good 05:07 Discharge instructions given to patient, Instructed on discharge instructions, follow up and referral plans. medication usage, Demonstrated understanding of instructions, follow-up care, medications, Prescriptions given X 2. Signatures: Dispatcher [employer] EDErika Church, AIR CHIPPER-C AIR CHIPPER-Britney Viera RN Ekta Wright, RN Felicitas Dodge Lacie, RN RN lg3 Potepalov, Sergey, MD MD sp4 Ekta Stout RN
--- NOTE | 2023-06-28 04:57 | EDPHYS ---
Physician Documentation [facility] Name: Latonya Sam Age: 37 yrs Sex: Female : 1985 Arrival Date: 06/28/2023 Time: 02:05 Bed 19 Private MD: ED Physician Bryan Díaz HPI: 06/28 02:20 This 37 yrs old Female presents to ER via Ambulatory with complaints of Flu kb Symptoms. 02:20 The patient or guardian reports cough, that is intermittent, described as mild. Onset: kb The symptoms/episode began/occurred yesterday. Severity of symptoms: At their worst the symptoms were mild, moderate, in the emergency department the symptoms are unchanged. Modifying factors: The symptoms are alleviated by nothing, the symptoms are aggravated by nothing. Associated signs and symptoms: Pertinent positives: rhinorrhea. The patient has not experienced similar symptoms in the past. The patient has not recently seen a physician. Pt reports cough and congestion since yesterday. Also reports she has been on her period for a few days, has a history of heavy periods and the bleeding got worse today. . GOODYEAR STITCHER: 02:12 LMP 06/28/2023 lg3 Historical: - Allergies: 02:12 Hydrocodone-Acetaminophen; lg3 - Home Meds: 02:12 None [Active]; lg3 - PMHx: 02:12 Diabetes mellitus; Schizophrenia; Anxiety; Depressive disorder; lg3 - PSHx: 02:12 Tonsillectomy; Adenoid excision; lg3 - Immunization history:: Adult Immunizations up to date, Client reports having NOT received the Covid vaccine. Flu vaccine is not up to date. - Social history:: Smoking status: Patient denies any tobacco usage or history of. Patient/guardian denies using alcohol, street drugs. ROS: 02:19 Constitutional: Negative for fever, chills, and weight loss. kb 02:19 ENT: Positive for rhinorrhea, sinus congestion. 02:19 Respiratory: Positive for cough. 02:19 : Positive for vaginal bleeding. 02:19 All other systems are negative. Exam: 02:19 Constitutional: This is a well developed, well nourished patient who is awake, alert, kb and in no acute distress. Head/Face: Normocephalic, atraumatic. ENT: Moist Mucous membranes Cardiovascular: Regular rate and rhythm with a normal S1 and S2. No gallops, murmurs, or rubs. No pulse deficits. Respiratory: Respirations even and unlabored. No increased work of breathing. Talking in full sentences Abdomen/GI: Soft, non-tender. No distention Skin: Warm, dry with normal turgor. Normal color. MS/ Extremity: Pulses equal, no cyanosis. Neurovascular intact. Full, normal range of motion. Neuro: Awake and alert, GCS 15, oriented to person, place, time, and situation. Moves all extremities. Normal gait. Vital Signs: 02:09 BP 185 / 106; Pulse 85; Resp 17 S; Temp 98.4(TE); Pulse Ox 99% on R/A; Weight 92.99 kg lg3 (R); Height 5 ft. 2 in. (R); 03:44 BP 149 / 87; Pulse 72; Resp 16; Pulse Ox 100% on R/A; iw 02:09 Body Mass Index 37.49 (92.99 kg, 157.48 cm) lg3 MDM: 02:07 Patient medically screened. kb 02:20 Differential diagnosis: flu, covid, uri, anemia, menorrhea. Data reviewed: vital signs, kb nurses notes. 02:52 Transition of care: After a detail discussion of the patient's case, care is kb transferred to Bryan Díaz MD. 04:43 Differential diagnosis: cervicitis, dysfunctional uterine bleeding, dysmenorrhea, sp4 endometriosis. Data reviewed: lab test result(s), radiologic studies, ultrasound. Consideration of Admission/Observation Escalation of care including admission/observation considered. ED course: Ultrasound revealed 5 mm and a both eating cyst at the cervix. Possible fibroid lower uterine segment measuring 13 mm. Uterus measures 8.5 cm. Both ovaries normal in size and patent flow. No definite acute findings. Hemoglobin today 10.5, blood sugar reveals 386.. 04:46 ED course: At this time patient is stable for discharge home. . sp4 04:53 ED course: Patient apparently has new onset of diabetes mellitus type 2. She has never sp4 had elevated blood sugars of this type. Patient has several relatives who have type 2 diabetes in her family. At this time will initiate metformin 500 mg twice a day glipizide 5 mg once a day. Will advise diabetic diet diligent exercise. Will advise regular visits with primary care physician for blood sugar control. Blood sugar checks twice a day. . 06/28 02:07 Order name: SARS RAPID; Complete Time: 04:42 kl 06/28 02:07 Order name: Flu; Complete Time: 04:42 kl 06/28 02:11 Order name: Basic Metabolic Panel; Complete Time: 03:24 kb 06/28 02:11 Order name: CBC with Diff; Complete Time: 04:42 kb 06/28 02:11 Order name: Test, Urine; Complete Time: 03:24 kb 06/28 02:11 Order name: Urinalysis w/ reflexes; Complete Time: 03:24 kb 06/28 03:16 Order name: CBC Smear Scan; Complete Time: 04:42 EDMS 06/28 04:45 Order name: Glucose, Ancillary Testing; Complete Time: 04:47 EDMS 06/28 02:11 Order name: US Pelvis Complete kb 06/28 02:11 Order name: IV Saline Lock; Complete Time: 02:21 kb 06/28 02:11 Order name: Labs collected and sent; Complete Time: 02:21 kb 06/28 02:11 Order name: NPO; Complete Time: 02:26 kb 06/28 04:45 Order name: Accucheck; Complete Time: 04:47 sp4 Administered Medications: 02:41 Drug: NS 0.9% IV 1000 ml Route: IV; Rate: 1000 ml; Site: left antecubital; iw 03:46 Follow up: IV Status: Completed infusion iw 02:43 Drug: Ondansetron IVP 4 mg Route: IVP; Site: left antecubital; iw 03:45 Follow up: Response: No adverse reaction iw 03:53 Drug: Insulin Regular Human IVP 5 units {Co-Signature: iw (Ekta Stout RN).} Route: kl IVP; Site: right antecubital; 05:07 Follow up: Response: No adverse reaction; Blood sugar is lowered iw Point of Care Testing: Blood Glucose: 04:34 Blood Glucose: 227 mg/dL; iw Ranges: Critical Glucose Levels:Adult <50 mg/dl or >400 mg/dl <40 mg/dl or >180 mg/dl Disposition: 03:29 Co-signature as Attending Physician, Bryan Díaz MD I agree with the assessment sp4 and plan of care. I reviewed the patient's care provided by Advanced Practice Provider \T\ agree w/ the diagnosis \T\ care plan. I personally saw the pt \T\ performed a substantive portion of the visit, incldng all aspects of the (History/Exam/Medical Decision Making). Disposition Summary: 06/28/23 04:56 Discharge Ordered Location: Home sp4 Problem: new sp4 Symptoms: have improved sp4 Condition: Stable sp4 Diagnosis - Other specified diabetes mellitus with hyperglycemia sp4 - New onset diabetes mellitus type 2, nausea and vomiting, vaginal bleeding. sp4 Dysfunctional uterine bleeding, uterine fibroid. - Hyperglycemia associated with type 2 diabetes sp4 Followup: sp4 - With: Willem Beach MD - When: 5 - 6 days - Reason: Recheck today's complaints Discharge Instructions: - Discharge Summary Sheet sp4 - Diabetes Mellitus and Nutrition, Adult sp4 Forms: - Work release form iw - Patient Portal Instructions sp4 - Leadership Thank You Letter sp4 Prescriptions: - Metformin 500 mg Oral Tablet - take 1 tablet by ORAL route every 12 hours for 7 days Take every 12 hours or sp4 roughly twice daily; 60 tablet; Refills: 0, Product Selection Permitted - Glipizide 5 mg Oral Tablet - take 1 tablet by ORAL route once daily before a meal; 30 tablet; Refills: 0, sp4 Product Selection Permitted Signatures: Dispatcher [employer] Erika Prasad, CREAMERY WORKER-C CREAMERY WORKER-CkBritney Gilman RN RN kl Williams, Irene, RN RN iw Gibson, Lacie, RN RN lg3 Potepalov, Sergey, MD MD sp4 Ekta Stout RN
[2023-06-28 05:25] VITALS: TEMP 98.4
[2023-06-28 05:34] VITALS: BP 149/87; O2SAT 100
--- NOTE | 2023-06-28 16:28 | RAD REPORT ---
EXAM DESCRIPTION: US - Pelvis Complete - 06/28/2023 3:14 am CLINICAL HISTORY: VAGINAL BLEEDING COMPARISON: None. TECHNIQUE: US PELVIS 06/28/2023 2:11 AM CDT FINDINGS: There is a 5 mm nabothian cyst at the cervix. There is a possible fibroid in the lower [place] segment measuring 13 mm. Uterus measures 8.5 cm. The mature stripe measures 6 mm. Both ovaries a re normal in size with patent flow. IMPRESSION: No definite acute findings. Electronically signed by: Delta Byrd MD 06/28/2023 3:31 AM CDT Due to temporary technical issues with the PACS/Fluency reporting system, reports are being signed by the in house radiologists without review as a courtesy to insure prompt reporting. The interpreting radiologist is fully responsible for the content of the report.
== END 2023-06-28 05:07 | disposition home or self-care (01) ==
LOC: ER 02:05
DX: E11.65 Type 2 diabetes mellitus with hyperglycemia (principal); N93.8 Other specified abnormal uterine and vaginal bleeding; D25.9 Leiomyoma of uterus, unspecified; Z20.822 Contact with and (suspected) exposure to COVID-19; Z88.5 Allergy status to narcotic agent
CPT/HCPCS: 85025; 81001; 80048; 36415; 81025; 82947; 87804 ×2; 76856; 99284; 87811; J1815; J2405; J7030

== ENCOUNTER 2023-07-03 11:00 | Emergency (ER) | payer BC ==
--- OUTSIDE RECORDS SUMMARY | 2023-07-03 11:04 | XMS REPORT | Continuity of Care Document ---
:1985 Author Organization [facility] t Address [address] [place] [address] Care Team Providers Name Role Phone Asked, No Pcp Primary Care Physician Unavailable STEFANY KENT Attending Clinician Unavailable Donny Andrade Attending Clinician DONNY ANDRADE Attending Clinician Unavailable MELANIE GHOTRA Attending Clinician Unavailable JACE CÁRDENAS Attending Clinician Unavailable ASHLEY NAPIER Attending Clinician Unavailable Fred Amaya Attending Clinician FRED AKBAR Attending Clinician Unavailable MELANIE GHOTRA Admitting Clinician Unavailable Payers Payer Name Policy Type Policy Number Effective Date Expiration Date S cassie [place] [id number] 2023 ADVANTAGE HMO/PLUS 00:00:00 Problems Condition Condition Condition Status Onset Resolution Last Treating Co mments Source Name Details Category Date Date Treatment Clinician Date COUGH/ COUGH/ Diagnosis Active 2020-102021-11-29 Me moria FEVER FEVER 2- 09:55:00 l Active 00:00: [place] 10/20/2021 00 [place] Menorrhagi Menorrhagi Disease Active 2021-0 M ethodi a with a with 9 st regular regular 00:00: Hospita cycle cycle 00 l Chlamydia Chlamydia Disease Active Uni vers trachomati trachomati -19 it y of s s 00:00: [place] infection infection 00 Medi jacobo of lower of lower Branch genitourin genitourin nazia sites nazia sites Screening Screening Disease Active Uni vers for STD for STD -12 ity of (sexually (sexually 00:[place] transmit[place] transmitte 00 Me dical d disease) d disease) Br anch Surveillan Surveillan Disease Active Overview : Univers ce of ce of 3-16 ICD10 ity of previously previously 00:00: Diagnosis [place] prescribed prescribed 00 Term Me dical contracept contracept Soil Checker Branch jesse method jesse method Utility Depo-Prove Depo-Prove Disease Active U nivers ra ra 3-16 ity of contracept [place]pt [place] jesse status 00 Me dical Branch Anemia Anemia Disease Active Overview: Univer s 3-16 ICD10 ity of 00:00: Diagnosis [place] 00 Term Medical Soil Checker Branch Utility Obesity Obesity Disease Active Overview: Univ ers 7-12 ICD10 ity of 00:00: Diagnosis [place] 00 Term Medical Soil Checker Branch Utility History of Past Illness Condition Condition Condition Status Onset Resolution Last Treating Co mments Source Name Details Category Date Date Treatment Clinician Date nConCo Problem 2020-102021-10-24 2021-10-24 Memoria acute acute 2-24 10:20:53 10:20:53 l respirator respirator 18:00: He rmele y disease y disease 00 10/21/2021 10/24/2021 [facility] Allergies, Adverse Reactions, Alerts Allergy Allergy Status Severity Reaction(s) Onset Inactive Treating Comm ents Source Name Type Date Date Clinician Hydrocod Propensi Active Hiv Method i one-Acet ty to 4-17 st aminophe adverse 00:00: Hospita n reaction 00 l s to drug Penicill DA Active MO 2017-10 [facility] ins 0-30 Clear 00:00: [place] 00 [facility] hydrocod DA Active 2017-10 [facility] one 0-30 Clear 00:00: [facility] Penicill Propensi Active Hives Univer s ins ty to 8-25 ity of adverse 00:00: [place] reaction 00 Medical s Branch PENICILL Drug Active Hives Univers INS Class 8-25 ity of 00:00: [place] 00 Medical Branch Hydrocod Propensi Active Hives Univer s one ty to 7-11 ity of adverse 00:00: [place] reaction 00 Medical s Branch HYDROCOD DRUG Active Hives Univers ONE INGREDI 7-11 ity of 00:00: [place] 00 Medical Branch amoxicil amoxicil Active Memori a chuy chuy l [place] acetamin acetamin Active Memori a ophen-hy ophen-hy l drocodon drocodon [place] n e e Family History Family Member Diagnosis Comments Start Date Stop Date Source Maternal grandmother Diabetes [facility] Maternal grandmother Heart disease [facility] Natural mother Bipolar disorder [facility] Natural mother Diabetes [facility] Natural mother Schizophrenia [facility] Social History Social Habit Start Date Stop Date Quantity Comments Source Gender identity [facility] Sexual orientation Method [facility] Social History 2021-10-21 2021-10-21 [facility] 04:47:29 04:47:29 Alcohol intake 2021-06-29 2021-06-29 Lifetime [facility] 00:00:00 00:00:00 non-drinker Hospital (finding) History of Social 2021-06-29 2021-06-29 [facility] function 00:00:00 00:00:00 Hospital Tobacco use and 2021-02-12 2021-02-12 Smokeless [facility] exposure 00:00:00 00:00:00 tobacco non-user Hospital Tobacco Comment 2015-04-19 2015-04-19 social smoker Univer sity of 00:00:00 00:00:00 only [facility] Alcohol Comment 2013-05-08 2013-05-08 socially only Univer sity of 00:00:00 00:00:00 [facility] Sex Ass[birth year] At [birth year] [facility] 00:00:00 00:00:00 Hospital Smoking Status Start Date Stop Date Source Never smoker General acute hospital Medications Ordered Filled Start Stop Current Ordering Indication Dosage Frequency Signature Comments Components Source Medication Medication Date Date Medication? Clinician (SIG) Name Name MULTIVITAMI Yes Take by Uni vers N ORAL 1-31 mouth. ity of 16:51: [place] 21 Medical Branch norgestimat Yes 1{tbl} Take 1 Un sowmya e-ethinyl 1-31 tablet by ity o f estradiol 00:00: mouth [place] (SPRINTEC) 00 daily. Medical 0.25-35 Branch mg-mcg per tablet norgestimat Yes [id number] 1{tbl} Take 1 Tab Univers e-ethinyl 4-18 by mouth ity of estradiol 00:00: daily. [place] (ORTHO 00 Medical TRI-CYCLEN, Branch 28,) 0.18/0.215/ 0.25 mg-35 mcg (28) tablet ferrous 2013-10 Yes [id number] 325mg Take 1 Tab Univers sulfate 1-09 by mouth 3 ity of (IRON, 00:00: (three) [place] FERROUS 00 times Medical SULFATE,) daily with Bran ch 325 mg (65 meals. mg iron) tablet Immunizations Ordered Filled Immunization Date Status Comments [facility] Immunization Name Name Td 2007 Completed University 00:00:00 [facility] Vital Signs Vital Name Observation Time Observation Value Comments Source Body weight 2020-01-11 15:44:00 90.719 kg [facility] BMI 2020-01-11 15:44:00 35.43 kg/m2 [facility] Systolic blood 2020-01-11 15:43:00 141 mm[Hg] Univer sity [facility] Diastolic blood 2020-01-11 15:43:00 95 mm[Hg] [facility] 2020-01-11 15:43:00 78 /min [facility] Body temperature 2020-01-11 15:43:[address] [facility] Respiratory rate 2020-01-11 15:43:00 18 /min [facility] Oxygen saturation in 2020-01-11 15:43:00 99 /min [facility] Arterial blood by [facility] Pulse oximetry Branch Respitory Rate 2021-10-21 05:45:00 Danyell Pinedo Systolic (mm Hg) 2021-10-21 05:45:00 Qamar Vernon Diastolic (mm Hg) 2021-10-21 05:45:00 Mem orial [place] Temperature Oral (F) 2021-10-21 05:45:00 98.6 F [facility] Heart Rate 2021-10-21 05:45:00 [facility] [place] Height 2021-10-21 04:40:00 157.48 cm [facility] [place] BMI Calculated 2021-10-21 04:40:00 Memori al [place] Weight 2021-10-21 04:40:00 [facility] [place] Systolic (mm Hg) 2021-10-21 04:40:00 Qamar rial [place] Diastolic (mm Hg) 2021-10-21 04:40:00 Mem orial [place] Heart Rate 2021-10-21 04:40:00 [facility] [place] Respitory Rate 2021-10-21 04:40:00 Memori al [place] Temperature Oral (F) 2021-10-21 04:40:00 98.6 F [facility] [place] Procedures Procedure Date / Time Performed Performing Clinician Sour e GALV ONLY - INFLUENZA 2020-01-11 15:53:00 Fred Akbar [facility] A B RSV [facility] Branch Plan of Care Planned Activity Planned Date Details Comments Source Future Scheduled 2023-07-03 COVID-19 VACCINE [facility] Test 11:04:07 (#1) [code = COVID-19 VACCINE (#1)] Future Scheduled 2023-07-03 Hep[facility] Test 11:04:07 screening (procedure) [code = 548597255] Future Scheduled 2023-07-03 Screening for [facility] Test 11:04:07 malignant neoplasm of cervix (procedure) [code = 779126680] Future Scheduled 2023-07-03 INFLUENZA VACCINE Method [facility] Hospital Test 11:04:07 (#1) [code = INFLUENZA VACCINE (#1)] Future Scheduled 2023-06-25 COVID-[address] [facility] Test 17:02:18 (#1) [code = COVID-19 VACCINE (#1)] Future Scheduled 2023-06-25 [facility] Test 17:02:18 screening (procedure) [code = 994114612] Future Scheduled 2023-06-25 Screening for [facility] Test 17:02:18 malignant neoplasm of cervix (procedure) [code = 481616816] Future Scheduled 2023-06-25 INFLUENZA VACCINE Method [facility] Hospital Test 17:02:18 (#1) [code = INFLUENZA VACCINE (#1)] Future Scheduled 2023-01-29 COVID-[address] [facility] Test 11:33:24 (#1) [code = COVID-19 VACCINE (#1)] Future Scheduled 2023-01-29 [facility] Test 11:33:24 screening (procedure) [code = 709536144] Future Scheduled 2023-01-29 Screening for [facility] Test 11:33:24 malignant neoplasm of cervix (procedure) [code = 452436881] Future Scheduled 2023-01-29 INFLUENZA VACCINE [facility] Hospital Test 11:33:24 [code = INFLUENZA VACCINE] Future Scheduled 2023-01-29 COVID-[address] [facility] Test 11:33:24 (#1) [code = COVID-19 VACCINE (#1)] Future Scheduled 2023-01-29 [facility] Test 11:33:24 screening (procedure) [code = 102408567] Future Scheduled 2023-01-29 Screening for [facility] Test 11:33:24 malignant neoplasm of cervix (procedure) [code = 126196569] Future Scheduled 2023-01-29 INFLUENZA VACCINE Method ist Hospital Test 11:33:24 [code = INFLUENZA VACCINE] Encounters Start End Encounter Admission Attending Care Care Encounter Source Date/Time Date/Time Type Type Clinicians Facility Department ID 2023-07-10 2023-07-10 Outpatient [facility] [id number] [place] 09:15:00 09:15:00 [facility] 2021-10-21 2021-10-21 Emergency nullFlavo [facility] [id number] Memoria 04:34:00 06:46:00 [facility] 00 l (EDL) [place] 2021-10-21 2021-10-21 Emergency nullFlavo [facility] [id number] Memoria 04:34:00 06:46:00 [facility]ED 00 l (EDLC) [place] 2021-10-20 2021-10-21 Outpatient Donny Andrade SE [id number] 22:34:00 00:46:00 Sumit 2021-10-20 2021-10-[address] [id number] 22:34:00 00:46:00 Sumit 2021-10-20 2021-10-21 Emergency E OMAR DONNY [facility] [id number] 22:34:00 00:46:00 Roney serrano [facility] 2021-06-29 2021-06-30 Inpatient PARADISE, [place] [id number] [address] [place] 00:00:00 00:00:00 MELANIE 527 Method i 2021-06-15 2021-06-15 Emergency AVI, [place] [id number] [address] [place] 00:00:00 00:00:00 JACE 214 Method i 2021-02-12 2021-02-12 Emergency KARTHIKEYAN, [place] [id number] [place] 00:00:00 00:00:00 ASHLEY 487 Method i 2020-01-11 2020-01-11 Emergency Naomie, TRAUMA [id number] Univers 10:44:53 12:13:00 [facility][note 3] 350.1.13.10 i ty of Rad [id number] [facility] [id number] [address] 2020-01-11 2020-01-11 Emergency X NAOMIE, [facility] ERT [id number] Univers 10:44:53 10:44:53 FRED riveray o f [facility] Results Test Description Test Time Test Comments Results Result Comments Source IMMUNOLOGY 2021-10-21 05:36:00 Test Item Value Reference Range Interpretation Comme nts Coronavirus (COVID-19) STEVEN (test code = Detected 1*ABN*(10/20/21 11 :36 PM) Coronavirus (COVID-19) STEVEN) [id number] 05:36:00 Test Item Value Reference Range Interpretation Comments Coronavirus (COVID-19) Detected STEVEN (test code = 1*ABN*(10/20/21 11:36 Coronavirus (COVID-19) PM) STEVEN) [id number] 05:36:00 Test Item Value Reference Range Interpretation Comments Coronavirus (COVID-19) Detected STEVEN (test code = 1*ABN*(10/20/21 11:36 Coronavirus (COVID-19) PM) STEVEN) [facility] [place] [id number] 05:36:00 Test Item Value Reference Range Interpretation Comments Coronavirus (COVID-19) Detected STEVEN (test code = 1*ABN*(10/20/21 11:36 Coronavirus (COVID-19) PM) STEVEN) [facility] - INFLUENZA A B RSV [id number] 16:57:00 Test Item Value Reference Range Interpretation Comments Influenza A virus by PCR (test code Negative Negative = 54093-1) Influenza B virus by PCR (test code Negative Negative = 29530-2) RSV by PCR (test code = 04356-1) Negative Negative Lab Interpretation (test code = Normal 79159-2) [facility]
[2023-07-03 12:42] LABS: Absolute Lymphocytes (CBC) 2.1 K/uL (0.7-4.9); Hematocrit 32.9 % (36.0-45.0); Lymphocytes % 29.8 % (15.3-44.8); MCV 64.7 fL (80-100); MPV 7.2 fL (7.6-11.3); Platelets 332 thou/uL (152-406); RBC Red Blood Cell Count 5.09 M/uL (3.86-4.86)
--- NOTE | 2023-07-03 12:42 | RAD REPORT ---
EXAM DESCRIPTION: RAD - Chest Single View - 07/03/2023 11:59 am CLINICAL HISTORY: MALAISE Chest pain. COMPARISON: Chest Single View dated 04/09/2023 FINDINGS: Portable technique limits examination quality. The lungs are grossly clear. The heart is normal in size. No displaced fractures. IMPRESSION: No acute intrathoracic process suspected.
[2023-07-03] MEDS ORDERED: HYDRALAZINE HCL 20 MG/ML VIAL ONE (12:54)
[2023-07-03] MEDS ORDERED: ONDANSETRON 4 MG/2 ML VIAL ONE (12:54)
[2023-07-03] MEDS ORDERED: NA CHLORIDE 0.9% 1,000 ML ONE (12:54)
[2023-07-03 12:56] LABS: Potassium 3.8 mEq/L (3.5-5.1); Troponin High Sensitivity 4.8 pg/mL (<58.9)
[2023-07-03] MEDS ORDERED: ONDANSETRON 4 MG (ODT) TAB ONE (13:10)
[2023-07-03 13:12] LABS: Anisocytosis 2+; Blood Morphology Comment NOTED (NOT SEEN); Platelet Estimate ADEQ; White Blood Cell Scan OK (OK)
[2023-07-03 13:13] LABS: Hypochromasia 1+
--- NOTE | 2023-07-03 13:24 | ER ---
Nurse's Notes [facility] Name: Latonya Sam Age: 37 yrs Sex: Female : 1985 Arrival Date: 07/03/2023 Time: 11:00 Bed 16 Private MD: Diagnosis: Nausea with vomiting, unspecified;Essential (primary) hypertension Presentation: 07/03 11:29 Chief complaint: Dizziness, nausea, and high blood pressure today. Newly dx DM2, hb started metformin 500mg BID on 06/29. Coronavirus screen: At this time, the client does not indicate any symptoms associated with coronavirus-19. Ebola Screen: No symptoms or risks identified at this time. Initial Sepsis Screen: Does the patient meet any 2 criteria? No. Patient's initial sepsis screen is negative. Does the patient have a suspected source of infection? No. Patient's initial sepsis screen is negative. Risk Assessment: Do you want to hurt yourself or someone else? Patient reports no desire to harm self or others. Onset of symptoms was July 03, 2023. 11:29 Method Of Arrival: Ambulatory hb 11:29 Acuity: CLARK 3 hb Triage Assessment: 13:00 General: Appears in no apparent distress. comfortable, Behavior is calm, cooperative, ko1 appropriate for age. Historical: - Allergies: 11:34 Hydrocodone-Acetaminophen; hb - PMHx: 11:34 Anxiety; depressive disorder; diabetes mellitus; Schizophrenia; hb - PSHx: 11:34 Adenoid excision; Tonsillectomy; hb - Immunization history:: Adult Immunizations up to date. - Social history:: Smoking status: Patient denies any tobacco usage or history of. Screenin:00 [facility] ED Fall Risk Assessment (Adult) History of falling in the last 3 months, ko1 including since admission No falls in past 3 months (0 pts) Confusion or Disorientation No (0 pts) Intoxicated or Sedated No (0 pts) Impaired Gait No (0 pts) Mobility Assist Device Used No (0 pt) Altered Elimination No (0 pt) Score/Fall Risk Level 0 - 2 = Low Risk Oriented to surroundings, Maintained a safe environment, Educated pt \T\ family on fall prevention, incl call for assistance when getting out of bed, Assessed \T\ reinforced patient's understanding of fall precautions, Provided non-skid footwear, Hourly rounding (assess needs \T\ fall precautionary measures) done, Used ambulatory aids as needed (educated on \T\ assisted with), Used gait belt as appropriate. Abuse screen: Denies threats or abuse. Denies injuries from another. Nutritional screening: No deficits noted. Tuberculosis screening: No symptoms or risk factors identified. Assessment: 13:00 Pain: Denies pain. ko1 13:03 Reassessment: No changes from previously documented assessment. Patient and/or family ko1 updated on plan of care and expected duration. Pain level reassessed. Patient is alert, oriented x 3, equal unlabored respirations, skin warm/dry/pink. Vital Signs: 11:29 BP 164 / 111; Pulse 81; Resp 16; Temp 98.6(TE); Pulse Ox 100% on R/A; hb 12:52 BP 133 / 83; Pulse 75; ko1 14:03 BP 136 / 91; Pulse 68; Resp 16; Pulse Ox 99% ; ko1 ED Course: 11:01 Patient arrived in ED. rg4 11:23 [facility] Escoto [facility]NP [facility] jh7 11:23 Del Ley MD is Attending Physician. jh7 11:34 Triage completed. hb 11:35 Arm band placed on. hb 12:01 XRAY Chest (1 view) In Process Unspecified. EDMS 12:14 Hope Bazan, JOSE is Primary Nurse. ko1 12:15 Patient placed in an exam room, on a stretcher. ll1 12:34 Initial lab(s) drawn, by me, sent to lab. Inserted saline lock: 22 gauge in left tm3 antecubital area, using aseptic technique. 13:00 Patient has correct armband on for positive identification. Bed in low position. Call ko1 light in reach. Side rails up X 1. Provided Education on: na. Pulse ox on. NIBP on. Door closed. Noise minimized. Lights dimmed. Warm blanket given. 13:00 No provider procedures requiring assistance completed. ko1 13:03 IV discontinued, intact, bleeding controlled, Pressure dressing applied. ko1 Administered Medications: 12:52 Not Given (Hemodynamic Parameters; BP 133/83): hydrALAZINE IVP 10 mg IVP once ko1 13:03 Not Given (Patient Refused): Ondansetron IVP 4 mg IVP once; over 2 minutes ko1 13:03 Not Given (Patient Refused): NS 0.9% IV 1000 ml IV at 1 bolus Per protocol; 1000 mL ko1 bolus 13:03 Drug: Ondansetron PO 4 mg Route: PO; ko1 Medication: 14:03 VIS not applicable for this client. ko1 Point of Care Testing: Blood Glucose: 11:32 Blood Glucose: 262 mg/dL; hb Ranges: Outcome: 13:23 Discharge ordered by MD. ramon 14:05 Discharged to home ambulatory. ko1 14:05 Condition: improved 14:05 Discharge instructions given to patient, Instructed on discharge instructions, follow up and referral plans. medication usage, Demonstrated understanding of instructions, follow-up care, medications, Prescriptions given X 1. 14:06 Patient left the ED. ko1 Signatures: Dispatcher [employer] EDMS Mario Alberto Astorga tm3 Vicky Smith, RN RN Aidee Jimenez rg4 Wei Sandoval RN RN 1 Nery Escoto, SENIOR PROJECT LEADER/TEAM LEAD SENIOR PROJECT LEADER/TEAM LEAD [facility] Hope Bazan RN RN ko1
--- NOTE | 2023-07-03 13:24 | EDPHYS ---
Physician Documentation [facility] Name: Latonya Sam Age: 37 yrs Sex: Female : 1985 Arrival Date: 07/03/2023 Time: 11:00 Bed 16 Private MD: ED Physician Del Ley HPI: 07/03 11:35 This 37 yrs old Female presents to ER via Ambulatory with complaints of High jh7 Blood Pressure. 11:35 The patient has elevated blood pressure and discovered this at home, with a home jh7 device. Onset: The symptoms/episode began/occurred yesterday. Associated signs and symptoms: Pertinent positives: nausea, vomiting, Pertinent negatives: headache. Associated signs and symptoms: Pertinent positives: dizziness. 37-year-old female presents with hypertension, dizziness, and vomiting since yesterday. She reports that she was just diagnosed with type 2 diabetes and that the metformin prescribed to her makes her feel sick.. Historical: - Allergies: 11:34 Hydrocodone-Acetaminophen; hb - PMHx: 11:34 Anxiety; depressive disorder; diabetes mellitus; Schizophrenia; hb - PSHx: 11:34 Adenoid excision; Tonsillectomy; hb - Immunization history:: Adult Immunizations up to date. - Social history:: Smoking status: Patient denies any tobacco usage or history of. ROS: 11:35 Constitutional: Negative for fever, chills, and weight loss, Eyes: Negative for injury, jh7 pain, redness, and discharge, Neck: Negative for injury, pain, and swelling, Cardiovascular: Negative for chest pain, palpitations, and edema, Respiratory: Negative for shortness of breath, cough, wheezing, and pleuritic chest pain, Back: Negative for injury and pain, MS/Extremity: Negative for injury and deformity, Skin: Negative for injury, rash, and discoloration. 11:35 Abdomen/GI: Positive for nausea and vomiting, Negative for abdominal pain. 11:35 Neuro: Positive for dizziness, Negative for altered mental status, headache, syncope, visual changes. 11:35 All other systems are negative. Exam: 11:35 Constitutional: This is a well developed, well nourished patient who is awake, alert, jh7 and in no acute distress. Neck: Trachea midline, no thyromegaly or masses palpated, and no cervical lymphadenopathy. Supple, full range of motion without nuchal rigidity, or vertebral point tenderness. No Meningismus. Cardiovascular: Regular rate and rhythm with a normal S1 and S2. No gallops, murmurs, or rubs. Normal PMI, no JVD. No pulse deficits. Respiratory: Lungs have equal breath sounds bilaterally, clear to auscultation and percussion. No rales, rhonchi or wheezes noted. No increased work of breathing, no retractions or nasal flaring. Abdomen/GI: Soft, non-tender, with normal bowel sounds. No distension or tympany. No guarding or rebound. No evidence of tenderness throughout. Back: No spinal tenderness. No costovertebral tenderness. Full range of motion. Skin: Warm, dry with normal turgor. Normal color with no rashes, no lesions, and no evidence of cellulitis. MS/ Extremity: Pulses equal, no cyanosis. Neurovascular intact. Full, normal range of motion. Neuro: Awake and alert, GCS 15, oriented to person, place, time, and situation. Cranial nerves II-XII grossly intact. Motor strength 5/5 in all extremities. Sensory grossly intact. Cerebellar exam normal. Normal gait. Vital Signs: 11:29 BP 164 / 111; Pulse 81; Resp 16; Temp 98.6(TE); Pulse Ox 100% on R/A; hb 12:52 BP 133 / 83; Pulse 75; ko1 14:03 BP 136 / 91; Pulse 68; Resp 16; Pulse Ox 99% ; ko1 MDM: 11:23 Patient medically screened. [facility] 13:25 Differential diagnosis: hypertensive crisis, Malignant HTN, Medication reaction, 7 gastroenteritis. Data interpreted: Pulse oximetry: is 100 %. Interpretation: normal. Data reviewed: vital signs, nurses notes, lab test result(s), EKG, radiologic studies, plain films. I considered the following discharge prescriptions or medication management in the emergency department Medications were administered in the Emergency Department. See MAR. Care significantly affected by the following chronic conditions: Diabetes. Counseling: I had a detailed discussion with the patient and/or guardian regarding the historical points, exam findings, and any diagnostic results supporting the discharge/admit diagnosis, to return to the emergency department if symptoms worsen or persist or if there are any questions or concerns that arise at home. Response to treatment: the patient's symptoms have markedly improved after treatment. ED course: Patient's blood pressure decreased on its own after administration of nausea medication. She declined IV fluids due to difficulty getting the IV. She passed a p.o. challenge. Informed that she will be prescribed Zofran to take before her metformin, but she was encouraged to follow-up with her PCP to notify him of these complaints.. 07/03 11:36 Order name: Basic Metabolic Panel; Complete Time: 12:57 [facility] 07/03 11:36 Order name: CBC with Diff; Complete Time: 13:21 [facility] 07/03 11:36 Order name: Troponin HS; Complete Time: 12:57 [facility] 07/03 11:45 Order name: Glucose, Ancillary Testing; Complete Time: 12:43 [facility] 07/03 12:48 Order name: CBC Smear Scan; Complete Time: 13:21 [facility] 07/03 11:36 Order name: XRAY Chest (1 view); Complete Time: 12:43 [facility] 07/03 11:36 Order name: EKG; Complete Time: 11:37 [facility] 07/03 11:36 Order name: Cardiac monitoring; Complete Time: 12:33 [facility] 07/03 11:36 Order name: EKG - Nurse/Tech [facility] 07/03 11:36 Order name: IV Saline Lock; Complete Time: 13:03 [facility] 07/03 11:36 Order name: Labs collected and sent; Complete Time: 12:52 [facility] 07/03 11:36 Order name: O2 Per Protocol; Complete Time: 12:33 [facility] 07/03 11:36 Order name: O2 Sat Monitoring; Complete Time: 12:33 [facility] EC:23 Rate is 74 beats/min. Rhythm is regular. QRS [place] is Normal. LA interval is normal at 7 142 msec. QRS interval is normal at 84 msec. QT interval is normal. No Q waves. T waves are Normal. No ST changes noted. Clinical impression: Normal ECG. Administered Medications: 12:52 Not Given (Hemodynamic Parameters; BP 133/83): hydrALAZINE IVP 10 mg IVP once ko1 13:03 Not Given (Patient Refused): Ondansetron IVP 4 mg IVP once; over 2 minutes ko1 13:03 Not Given (Patient Refused): NS 0.9% IV 1000 ml IV at 1 bolus Per protocol; 1000 mL ko1 bolus 13:03 Drug: Ondansetron PO 4 mg Route: PO; ko1 Point of Care Testing: Blood Glucose: 11:32 Blood Glucose: 262 mg/dL; hb Ranges: Critical Glucose Levels:Adult <50 mg/dl or >400 mg/dl <40 mg/dl or >180 mg/dl Disposition: 15:02 Co-signature as Attending Physician, Del Ley MD I reviewed the patient's care rn provided by the Advanced Practice Provider and agree with the diagnosis and treatment plan. Disposition Summary: 07/03/23 13:23 Discharge Ordered Location: Home [facility] Problem: new [facility] Symptoms: have improved [facility] Condition: Stable [facility] Diagnosis - Nausea with vomiting, unspecified [facility] - Essential (primary) hypertension [facility] Followup: [facility] - With: Private Physician - When: 2 - 3 days - Reason: Recheck today's complaints Discharge Instructions: - Discharge Summary Sheet [facility] - Hypertension, Adult [facility] - Nausea and Vomiting, Adult [facility] Forms: - Medication Reconciliation Form [facility] - Thank You Letter [facility] - Patient Portal Instructions [facility] - Leadership Thank You Letter [facility] Prescriptions: - ondansetron 4 mg Oral Tablet,disintegrating - take 1 tablet by ORAL route every 4-6 hours As needed; 20 tablet; Refills: 0, jh7 Product Selection Permitted Signatures: Dispatcher [employer] EDDel Gloria MD MD rn Baxter, Heather RN JOSE Nery [place], [place] [id number] Hope Bazan RN RN ko1
[2023-07-03 14:50] VITALS: TEMP 98.6
[2023-07-03 14:52] VITALS: BP 136/91; O2SAT 99
--- NOTE | 2023-07-04 18:45 | EKG ---
Test Date: 2023-07-03 Test Time: 13:21:02 [place] Supervisor: KRUPA MEASUREMENT RESULTS: Intervals: Rate: 74 ND: 142 QRSD: 84 QT: 414 QTc: 459 [place]: P: 42 ND: 142 QRS: 32 T: 31 INTERPRETIVE STATEMENTS: Normal sinus rhythm Normal ECG No previous ECG available for comparison Electronically Signed On 07-04-23 18:42:58 CDT by Estuardo Moya
== END 2023-07-03 14:06 | disposition home or self-care (01) ==
LOC: ER 11:00
DX: I10 Essential (primary) hypertension (principal); R11.2 Nausea with vomiting, unspecified; R42 Dizziness and giddiness; Z88.6 Allergy status to analgesic agent; F41.9 Anxiety disorder, unspecified; F32.A Depression, unspecified; E11.9 Type 2 diabetes mellitus without complications
CPT/HCPCS: 93005; 85025; 80048; 36415; 82947; 84484; 71045; 99284; Q0162; J0360; J2405; J7030